=== PATIENT | female | born 1945 | race Caucasian/White ===

== ENCOUNTER → 2020-10-23 | Day surgery (SDC) | payer MEDICARE ==
[2020-10-22 16:15] VITALS: BMI 29.8
[~2020-10-23] MED LIST: Bupivacaine PF 0.75% SDV 10 ML ONE; CEFAZOLIN 1 GM VIAL ONE; Cyclopentolate 1% Opth Drop 2 ML BOT FS SCH; Cyclopentolate 1% Opth Drop 2 ML BOT ONE; Fentanyl 100 MCG/2 ML VIAL ONE; Fluorouracil 100 MG, Enoxaparin Sodium 25 MG, EPINEPHrine 0.3 MG in Ophthalmic Irrigati... IRR SCH; Indocyanine Green 25 MG/10 ML VIAL ONE; Lidocaine 1% PF 5 ML VIAL ONE; Lidocaine 4% PF 5 ML AMP ONE; Maxitrol 0.1% Opth Oint 3.5 GM TUBE ONE; Midazolam HCl 2 mg/2 ml Vial ONE; PROPOFOL 20 ML ONE; PROPOFOL 200 MG/20 ML VIAL ONE; Phenylephrine 2.5% Ophth Soln 5 ML BOT FS SCH; Phenylephrine 2.5% Ophth Soln 5 ML BOT ONE; Triamcinolone 40 MG/ML VIAL ONE
--- NOTE | 2020-10-23 21:59 | OP ---
DATE OF PROCEDURE: 10/23/2020 PREOPERATIVE DIAGNOSIS: Epiretinal membrane, left eye. POSTOPERATIVE DIAGNOSIS: Epiretinal membrane, left eye. PROCEDURES PERFORMED: Pars plana vitrectomy, membrane peel, left eye. ANESTHESIA: Local with monitored anesthesia care. PROCEDURE IN DETAIL: The patient was identified in the preoperative holding area. Appropriate informed consent for the planned surgical procedure on the left eye had been obtained. The patient was transported to the operative suite. Appropriate cardiopulmonary monitoring was established. Local anesthesia was obtained using retrobulbar modified Van Lint lid block using 50:50 mixture of 4% lidocaine and 0.75% bupivacaine. The patient was prepped and draped in usual sterile manner for ophthalmic surgery, left eye. Lid speculum was placed in left eye. A 27-gauge trocar was placed superotemporally, inferotemporally, supranasally. Infusion line was placed inferotemporally. Light pipe and vitreous cutter were inserted into the eye. Core vitrectomy was performed. Indocyanine green dye was infused on the posterior pole x1, identifying epiretinal membrane and internal limiting membrane. This was elevated using membrane scraper and peeled across the macula using end gripping forceps. No holes, breaks, or tears. Indirect ophthalmoscopy was used to exam the retina 360 degrees. No holes, breaks, or tears were identified. Prophylactic laser was placed behind the sclerotomies. Trocars were removed. The eye was noted to retain pressure well. Retrobulbar Kenalog and subconjunctival Ancef were placed. Antibiotic ointment was placed. Eye was patched and shielded. The patient was taken to postop recovery unit in good condition, having suffered no immediate perioperative complications. The patient was instructed to keep patch and shield on. Avoid lifting or bending. Followup appointment with Dr. Richmond. Job ID: [id number]
== END ==
LOC: SDC 05:57
PROVIDERS: ATTEND Ophthalmology Retina Specialist
PROC: 08T53ZZ Resection of Left Vitreous, Percutaneous Approach (ICD-10-PCS; principal; 2020-10-23)
PROC: 08NF3ZZ Release Left Retina, Percutaneous Approach (ICD-10-PCS; 2020-10-23)
DX: H35.372 Puckering of macula, left eye (principal); Z79.82 Long term (current) use of aspirin; Z79.899 Other long term (current) drug therapy; Z88.0 Allergy status to penicillin; Z88.5 Allergy status to narcotic agent
CPT/HCPCS: 67025; J0171; J0690; J1650; J2250; J2704; J3010; J3301; J3490; J9190